=== PATIENT | female | born 1985 | race Caucasian/White ===

== ENCOUNTER 2016-12-24 16:55 | Emergency (ER) | payer OTHER ==
[2016-12-24 17:42] VITALS: BP 117/75; PULSE 77; RESP 18; TEMP 97.6; O2SAT 97
[2016-12-24] MEDS ORDERED: IBUPROFEN 400 MG TAB PO ONE (17:58)
[2016-12-24] MEDS ORDERED: TRAMADOL HYDROCHLORIDE 50 MG TAB PO ONE (17:58)
[2016-12-24] MEDS ORDERED: TRAMADOL HYDROCHLORIDE 50 MG TAB ONE (18:10)
[2016-12-24] MEDS ORDERED: IBUPROFEN 400 MG TAB ONE (18:10)
== END 2016-12-24 19:05 | disposition home or self-care (01) ==
LOC: ED 16:55
DX: S93.601A Unspecified sprain of right foot, initial encounter (principal); X50.1XXA Overexertion from prolonged static or awkward postures, initial encounter
CPT/HCPCS: 73630; 99282